=== PATIENT | female | born 1960 | race Two or more races ===

== ENCOUNTER 2021-11-19 13:44 | Emergency (ER) | payer MEDICAID, OTHER ==
[~2021-11-19] VITALS: Ht 152.4 cm; Wt 109.9 kg
[2021-11-19 17:21] VITALS: BP 126/77
== END 2021-11-19 17:25 | disposition home or self-care (01) ==
LOC: ER 13:44
DX: H11.32 Conjunctival hemorrhage, left eye (principal); E11.9 Type 2 diabetes mellitus without complications; I10 Essential (primary) hypertension; Z88.6 Allergy status to analgesic agent
CPT/HCPCS: 70450; 93005

== ENCOUNTER 2022-02-21 16:15 | Emergency (ER) | payer MEDICAID, OTHER ==
[~2022-02-21] VITALS: Ht 152.4 cm; Wt 123.0 kg
[2022-02-21] MEDS ORDERED: ACETAMINOPHEN 500 MG TAB PO ONE (19:30)
[2022-02-21] MEDS ORDERED: DULA3INJ SC (22:26)
[2022-02-21 22:55] VITALS: BP 133/83
== END 2022-02-21 23:05 | disposition home or self-care (01) ==
LOC: ER 16:15 → EDUNIT# 16:15 → EDBD 16:15 → ER 23:00
DX: S16.1XXA Strain of muscle, fascia and tendon at neck level, initial encounter (principal); S09.90XA Unspecified injury of head, initial encounter; S89.91XA Unspecified injury of right lower leg, initial encounter; M94.0 Chondrocostal junction syndrome [Tietze]; I10 Essential (primary) hypertension; E11.9 Type 2 diabetes mellitus without complications; E78.5 Hyperlipidemia, unspecified; Z90.49 Acquired absence of other specified parts of digestive tract; Z79.899 Other long term (current) drug therapy; Z88.5 Allergy status to narcotic agent; V49.9XXA Car occupant (driver) (passenger) injured in unspecified traffic accident, initial encounter; Y93.89 Activity, other specified; Y92.410 Unspecified street and highway as the place of occurrence of the external cause; Y99.8 Other external cause status
CPT/HCPCS: 70450; 72125; 72131; 73560; 93005

== ENCOUNTER → 2022-08-25 | Day surgery (SDC) | payer MEDICAID ==
[2022-08-21 09:57] LABS: Basophils # (auto) 0.1 10 ^3/uL (0-0.2); Eosinophils # (auto) 0.3 10 ^3/uL (0-0.8); Mean Corpuscular Hgb Conc. 33.3 g/dL (32.0-36.0); Neutrophils # (auto) 4.1 10 ^3/uL (1.6-8.6); Nucleated Red Blood Cells % 0.1 %; Red Cell Distribution Width 16.4 % (11.8-14.3)
[2022-08-21 10:01] LABS: Basophils % (auto) 0.9 % (0.0-2.0); Eosinophils % (auto) 4.7 % (0.0-7.0); Hematocrit 39.6 % (36.0-46.0); Hemoglobin 13.2 g/dL (12.2-16.2); Lymphocytes # (auto) 2.3 10 ^3/uL (0.4-5.4); Lymphocytes % (auto) 31.4 % (10.0-50.0); Mean Corpuscular Hemoglobin 25.6 pg (28.0-32.0); Mean Corpuscular Volume 76.9 fL (80.0-100.0); Monocytes # (auto) 0.4 10 ^3/uL (0-1.3); Monocytes % (auto) 5.9 % (0.0-12.0); Neutrophils % (auto) 57.1 % (37.0-80.0); Red Blood Cells 5.15 10^6/uL (4.0-5.20); White Blood Cell 7.2 10^3/uL (4.4-10.8)
[2022-08-21 10:14] LABS: INR 0.97 (0.9-1.15); Partial Thromboplastin Time 26.6 sec (24.6-33.4)
[2022-08-21 10:17] LABS: Albumin 3.2 g/dL (3.4-5.0); BUN/Creatinine Ratio 11.8 (10.0-20.0); Bilirubin, Total 0.5 mg/dL (0.2-1.0); Calcium 9.3 mg/dL (8.5-10.1); Total Protein 7.3 g/dL (6.4-8.2)
[~2022-08-25] VITALS: Ht 165.1 cm; Wt 114.8 kg
[~2022-08-25] MED LIST: ALBUAER3 IN; ATOR20TA PO; DULA3INJ SC; FLUO40CA PO; GLIP-204 PO; HYDR50TA69 PO; LISI20TA28 PO; MOME100A IN; OMEP20TA PO; PREG100C PO; TIZA4CAP PO
[2022-08-25] MEDS: fentaNYL CITRATE 100 MCG/2 ML VL ONE ×2 (10:25→10:31)
[2022-08-25] MEDS: diphenhdrAMINE HCL 50 MG/1 ML VL ONE ×2 (10:25→10:28)
[2022-08-25] MEDS: MIDAZOLAM HCL 2MG/2ML 2ml VIAL (1mg/ml) ONE ×4 (10:25→10:39)
[2022-08-25 11:30] VITALS: BP 126/66
== END | disposition home or self-care (01) ==
LOC: GI 09:12
PROVIDERS: ATTEND Internal Medicine Gastroenterology
DX: R19.5 Other fecal abnormalities (principal); K57.30 Diverticulosis of large intestine without perforation or abscess without bleeding; K64.8 Other hemorrhoids
CPT/HCPCS: 36415; 45385; 80053; 85025; 85610; 85730; J1200; J2250; J3010; J7030; 99152